=== PATIENT | female | born 1960 | race Caucasian/White ===

== ENCOUNTER 2018-11-07 10:49 | Inpatient (IN) | payer OTHER | END 2018-11-15 17:05 | disposition home health service (06) | LOC: ER 10:49 → ED HOLD 15:58 → PCU 3S 18:38 | DX: I26.99 Other pulmonary embolism without acute cor pulmonale (principal); J96.01 Acute respiratory failure with hypoxia; G93.40 Encephalopathy, unspecified; I82.492 Acute embolism and thrombosis of other specified deep vein of left lower extremity; N17.9 Acute kidney failure, unspecified; I50.9 Heart failure, unspecified ==